=== PATIENT | male | born 1985 | race Caucasian/White ===

== ENCOUNTER → 2017-08-12 | Outpatient (CLI) | payer OTHER | END | disposition home or self-care (01) | LOC: C.LAB 15:26 | PROVIDERS: ATTEND Neuromusculoskeletal Medicine & OMM | DX: R10.30 Lower abdominal pain, unspecified (principal) ==

== ENCOUNTER → 2017-08-26 | Outpatient (CLI) | payer OTHER ==
--- NOTE | 2017-08-26 13:15 | DIAGNOSTIC IMAGING REPORT ---
(RENAL)RETROPERITON COMP CLINICAL HISTORY: 32 years-old Male presenting with R10.30 lower abdominal pain. TECHNIQUE: Real-time grayscale and limited color Doppler ultrasound imaging of the kidneys and bladder was performed. COMPARISON: None. FINDINGS: Right kidney: Normal echogenicity of renal parenchyma. Right kidney measures 9.8 cm. No hydronephrosis. No convincing evidence of calculus or mass. Left kidney: Normal echogenicity of renal parenchyma. Left kidney measures 10.5 cm. No hydronephrosis. No convincing evidence of calculus or mass. Bladder: Normal. Bilateral ureteral jets present. Other: Normal prostate. IMPRESSION: 1. Normal renal ultrasound. No obstruction. Electronically signed by: Michael Lazaro M.D. 08/26/2017 1:14 PM Dictated Date/Time: 08/26/2017 1:13 PM
== END | disposition home or self-care (01) ==
LOC: C.ULTR 12:45
PROVIDERS: ATTEND Neuromusculoskeletal Medicine & OMM
DX: R10.30 Lower abdominal pain, unspecified (principal)